=== PATIENT | female | born 1985 | race Caucasian/White ===

== ENCOUNTER 2022-02-06 09:54 | Outpatient (CLI) | payer BC, OTHER ==
[2022-02-06 21:29] LABS: SARS-CoV-2 PCR by NAA Not Detected (NotDetected)
== END 2022-02-06 09:55 | disposition home or self-care (01) ==
LOC: CSHLAB 09:54
PROVIDERS: ATTEND Obstetrics & Gynecology
DX: Z20.822 Contact with and (suspected) exposure to COVID-19 (principal)
CPT/HCPCS: U0003; U0005

== ENCOUNTER 2022-02-06 17:09 | Inpatient (IN) | payer BC ==
[~2022-02-06 17:09] MED LIST: Bupivacaine/Epinephrine 0.25% 30 ML VIAL ONE
[2022-02-06] MEDS ORDERED: Ondansetron PF 4 MG/2 ML Vial IVP PRN ×2 (17:13→21:47)
[2022-02-06] MEDS ORDERED: hydrALAZINE 20 MG/ML VIAL SLOW IVP PRN ×3 (17:13)
[2022-02-06] MEDS ORDERED: Labetalol HCl 100 MG/20 ML VIAL SLOW IVP PRN ×2 (17:13)
[2022-02-06] MEDS ORDERED: Acetaminophen 500 MG TAB PO PRN (17:13)
[2022-02-06] MEDS ORDERED: Calcium Gluc 4.6 MEQ/10 ML (100 MG/ML) SLOW IVP PRN (17:13)
[2022-02-06] MEDS ORDERED: Butorphanol Tartrate 1 MG/ML VIAL SLOW IVP PRN (17:13)
[2022-02-06] MEDS ORDERED: Promethazine HCl 25 MG/ML VIAL IM PRN ×2 (17:13→21:47)
[2022-02-06] MEDS ORDERED: Lorazepam 2 MG/ML VIAL SLOW IVP PRN (17:13)
[2022-02-06] MEDS ORDERED: Docusate 100 MG CAP PO PRN (17:13)
[2022-02-06] MEDS ORDERED: HYDROcodone/Acetaminophen 5/325 mg Tablet PO PRN ×2 (17:13)
[2022-02-06] MEDS ORDERED: Ibuprofen 800 MG TAB PO PRN (17:13)
[2022-02-06] MEDS ORDERED: Misoprostol 200 MCG TAB PR PRN (17:13)
[2022-02-06] MEDS ORDERED: Diphenoxylate HCl/Atropine Tablet PO PRN ×2 (17:13)
[2022-02-06] MEDS ORDERED: Lidocaine 1% (PF) 30 ML VIAL SC PRN (17:13)
[2022-02-06] MEDS ORDERED: NS w/ Oxytocin 30 units 500 ML IV SCH ×2 (17:15)
[2022-02-06] MEDS ORDERED: Lactated Ringer's 1,000 ML IV SCH (17:15)
[2022-02-06 18:59] LABS: Hemoglobin 12.3 g/dL (12.0-15.5); Mean Corpuscular HGB CONC 34.7 g/dL (32.0-36.0); Mean Corpuscular Hemoglobin 30.9 pg (27.0-33.0); Mean Corpuscular Volume 88.9 fl (81.6-98.3); Mean Platelet Volume 10.8 fl (7.4-10.4); Platelet Count 263 10x3/uL (150-450); RBC Distribution Width 14.1 % (11.5-14.5); Red Blood Cell (RBC) Count 3.98 10x6/uL (3.90-5.03); White Blood Cell (WBC) Count 9.2 10x3/uL (3.5-10.5)
[2022-02-06] MEDS ORDERED: Calcium Carbonate 500 MG ChewTAB PO PRN (19:23)
[2022-02-06 19:30] LABS: HIV (1/2) Antibody/Antigen Non-Reactive (NonReactive); Hep B Surf Ag Non-Reactive S/CO (NonReactive)
[2022-02-06 19:31] LABS: HBSAg Index 0.18 S/CO (0-0.99); Syphilis Antibody Nonreactive (Nonreactive); Syphilis Antibody Index 0.03 S/CO (<1.00 Non-Reactive)
[2022-02-06] MEDS ORDERED: Fentanyl 2 mcg/Bup 0.1% Cadd 100 ML ONE (21:13)
[2022-02-06] MEDS ORDERED: Moisturizing Cream (Eucerin) 113 GM JAR TOP PRN (21:47)
[2022-02-06] MEDS ORDERED: ePHEDrine Sulfate 50 MG/10 ML VIAL SLOW IVP PRN (21:47)
[2022-02-06] MEDS ORDERED: Acetaminophen 325 MG TAB PO PRN (21:47)
[2022-02-06] MEDS ORDERED: Naloxone HCl 0.4 mg/ml Vial IVP PRN ×2 (21:47)
[2022-02-06] MEDS ORDERED: Lactated Ringer's 500 ML IV PRN (21:47)
[2022-02-06] MEDS ORDERED: diphenhydrAMINE 50 MG/ML VIAL IVP PRN (21:47)
[2022-02-06] MEDS ORDERED: Communication Order-Pharmacy FS SCH (22:00)
[2022-02-06] MEDS ORDERED: Fentanyl 2 mcg/Bupivacaine 0.1% Cassette 100 ML EPIDURAL SCH (22:00)
[2022-02-07] MEDS ORDERED: Milk Of Magnesia 30 ML UDCUP PO PRN (06:48)
[2022-02-07] MEDS ORDERED: Bisacodyl 10 MG SUPP PR PRN (06:48)
[2022-02-07] MEDS ORDERED: Misoprostol 200 MCG TAB VAG PRN (06:48)
[2022-02-07] MEDS ORDERED: hydrALAZINE 20 MG/ML VIAL SLOW IVP PRN (06:48)
[2022-02-07] MEDS ORDERED: Preparation H Ointment 28 GM TUBE PR PRN (06:48)
[2022-02-07] MEDS ORDERED: HYDROcodone/Acetaminophen 5/325 mg Tablet PO PRN ×2 (06:48)
[2022-02-07] MEDS ORDERED: Boostrix 0.5 ML (Tdap) VIAL IM ONE (06:48)
[2022-02-07] MEDS ORDERED: Zolpidem Tartrate 5 MG TAB PO PRN (06:48)
[2022-02-07] MEDS ORDERED: Ondansetron PF 4 MG/2 ML Vial IVP PRN (06:48)
[2022-02-07] MEDS ORDERED: Benzocaine-Menthol 82.5 ML CAN TOP PRN (06:48)
[2022-02-07] MEDS ORDERED: Lanolin Ointment 7 GM TUBE TOP PRN (06:48)
[2022-02-07] MEDS ORDERED: diphenhydrAMINE 25 MG CAP PO PRN (06:48)
[2022-02-07] MEDS ORDERED: Witch Hazel-Glycerin 1 EACH JAR TOP PRN (06:50)
[2022-02-07] MEDS ORDERED: NS w/ Oxytocin 30 units 500 ML IV SCH (07:00)
[2022-02-07] MEDS: Ferrous Sulfate 325 MG TAB PO SCH ×2 (09:24→16:34)
[2022-02-07] MEDS: Labetalol HCl 200 MG TAB PO SCH ×2 (09:24→21:23)
[2022-02-07] MEDS: Docusate 100 MG CAP PO SCH ×2 (09:58→21:23)
[2022-02-07] MEDS: Prenatal Vitamin 1 TAB PO SCH (09:58)
[2022-02-07] MEDS: Ibuprofen 800 MG TAB PO SCH ×2 (13:22→21:24)
[2022-02-08 04:47] LABS: Hemoglobin 10.5 g/dL (12.0-15.5); Mean Corpuscular HGB CONC 33.5 g/dL (32.0-36.0); Mean Corpuscular Hemoglobin 31.1 pg (27.0-33.0); Mean Corpuscular Volume 92.6 fl (81.6-98.3); Mean Platelet Volume 11.1 fl (7.4-10.4); Platelet Count 238 10x3/uL (150-450); RBC Distribution Width 14.3 % (11.5-14.5); Red Blood Cell (RBC) Count 3.38 10x6/uL (3.90-5.03); White Blood Cell (WBC) Count 11.4 10x3/uL (3.5-10.5)
[2022-02-08] MEDS: Ibuprofen 800 MG TAB PO SCH (06:27)
[2022-02-08] MEDS: Ferrous Sulfate 325 MG TAB PO SCH (07:12)
[2022-02-08] MEDS: Prenatal Vitamin 1 TAB PO SCH (09:25)
[2022-02-08] MEDS: Labetalol HCl 200 MG TAB PO SCH (09:25)
[2022-02-08] MEDS: Docusate 100 MG CAP PO SCH (09:25)
[2022-02-08 11:56] VITALS: BP 133/87; TEMP 98.5
== END 2022-02-08 13:56 | disposition home or self-care (01) | DRG 807 ==
LOC: CSHLD 17:09 → CSHPP 02-07 09:10
PROVIDERS: ADMIT Obstetrics & Gynecology; ATTEND Obstetrics & Gynecology
PROC: 10E0XZZ Delivery of Products of Conception, External Approach (ICD-10-PCS; principal; 2022-02-07)
PROC: 3E033VJ Introduction of Other Hormone into Peripheral Vein, Percutaneous Approach (ICD-10-PCS; 2022-02-07)
PROC: 10907ZC Drainage of Amniotic Fluid, Therapeutic from Products of Conception, Via Natural or Artificial Opening (ICD-10-PCS; 2022-02-07)
PROC: 0HQ9XZZ Repair Perineum Skin, External Approach (ICD-10-PCS; 2022-02-07)
DX: O13.4 Gestational [pregnancy-induced] hypertension without significant proteinuria, complicating childbirth (principal); Z37.0 Single live birth; Z3A.38 38 weeks gestation of pregnancy; D64.9 Anemia, unspecified; O99.02 Anemia complicating childbirth; Z79.899 Other long term (current) drug therapy; O70.0 First degree perineal laceration during delivery
CPT/HCPCS: 36415; 51702; 85027; 86780; 86850; 86900; 86901; 87340; 87389; J2405; J2590; J7120; U0003; U0005

== ENCOUNTER 2022-02-11 14:37 | Inpatient (IN) | payer BC ==
[2022-02-11] MEDS ORDERED: Labetalol HCl 100 MG/20 ML VIAL ONE (15:11)
[2022-02-11] MEDS ORDERED: Magnesium 2 GM/50 ML BAG (IN WATER) ONE (15:17)
[2022-02-11 15:29] LABS: Bilirubin Neg (Negative); Blood, Urine 250 (Negative); Clarity Clear (Clear); Glucose, Urine (Dipstick) Normal (Negative); Ketone, Urine Negative (Negative); Leukocyte 500 (Negative); Nitrite Negative (Negative); Protein, Urine (Dipstick) Negative (Neg-Trace); Specific Gravity, Urine 1.005 (1.002-1.036); Urobilinogen Normal mg/dL (Less than 2)
[2022-02-11 15:31] LABS: #Eosinphils 0.4 10x3/uL (0.0-0.5); #Monocytes 0.5 10x3/uL (0.0-1.1); %Basophils 0.5 % (0.0-2.0); %Eosinophils 4.1 % (0.0-6.0); %Lymphocytes 29.3 % (18.0-47.0); %Monocytes 5.9 % (0.0-10.0); %Neutrophils 58.9 % (40.0-75.0); Hemoglobin 11.9 g/dL (12.0-15.5); Mean Corpuscular HGB CONC 33.1 g/dL (32.0-36.0); Mean Corpuscular Hemoglobin 30.3 pg (27.0-33.0); Mean Corpuscular Volume 91.6 fl (81.6-98.3); Mean Platelet Volume 10.4 fl (7.4-10.4); Platelet Count 357 10x3/uL (150-450); RBC Distribution Width 13.7 % (11.5-14.5); Red Blood Cell (RBC) Count 3.93 10x6/uL (3.90-5.03); White Blood Cell (WBC) Count 8.5 10x3/uL (3.5-10.5)
[2022-02-11 15:44] LABS: ALT (SGPT) 19 U/L (8-55); AST (SGOT) 26 U/L (5-34); Albumin 3.8 g/dL (3.5-5.0); Alkaline Phosphatase 126 U/L (40-110); Anion Gap 15 mmol/L (10-20); BUN (Urea Nitrogen) 8 mg/dL (7.0-18.7); Bilirubin, Total 0.3 mg/dL (0.2-1.2); Calc. Creatinine Clearance 0 mL/min (70-130); Calcium 8.9 mg/dL (7.8-10.44); Carbon Dioxide 21 mmol/L (22-29); Chloride 107 mmol/L (98-107); Globulin 3.2 g/dL (2.4-3.5); Glucose 91 mg/dL (70-105); Sodium 139 mmol/L (136-145)
[2022-02-11 15:53] LABS: Bacteria/HPF None Seen HPF (None Seen); RBC/HPF 0-3 HPF (0-3); Squamous Epithelial 0-3 HPF (0-3); WBC/HPF 0-3 HPF (0-3)
[2022-02-11 17:06] LABS: SARS-CoV-2 NAA Rapid Test Not Detected (NotDetected)
[2022-02-11] MEDS ORDERED: Magnesium Sulfate 20 gm/500 ml 20 GM/500 ML BAG ONE (18:06)
[2022-02-11] MEDS: Magnesium Sulfate 20 gm/500 ml 20 GM/500 ML BAG IVPB SCH (18:20)
[2022-02-11] MEDS ORDERED: Labetalol HCl 100 MG/20 ML VIAL SLOW IVP PRN ×2 (18:23)
[2022-02-11] MEDS ORDERED: Lorazepam 2 MG/ML VIAL SLOW IVP PRN (18:23)
[2022-02-11] MEDS ORDERED: hydrALAZINE 20 MG/ML VIAL SLOW IVP PRN (18:23)
[2022-02-11] MEDS ORDERED: Calcium Gluc 4.6 MEQ/10 ML (100 MG/ML) SLOW IVP PRN (18:23)
[2022-02-11] MEDS ORDERED: hydrALAZINE 20 MG/ML VIAL ONE (18:27)
[2022-02-11] MEDS ORDERED: NIFEdipine XL 30 MG TAB PO SCH (18:30)
[2022-02-11] MEDS ORDERED: Acetaminophen 500 MG TAB PO PRN (18:32)
[2022-02-11] MEDS ORDERED: Zolpidem Tartrate 5 MG TAB PO PRN (18:33)
[2022-02-11] MEDS ORDERED: Furosemide 20 MG TAB PO SCH (20:00)
[2022-02-11] MEDS: Labetalol HCl 200 MG TAB PO SCH (20:40)
[2022-02-11] MEDS: Ibuprofen 800 MG TAB PO PRN (20:40)
[2022-02-12 02:55] LABS: Magnesium 4.9 mg/dL (1.6-2.6)
[2022-02-12] MEDS: Magnesium Sulfate 20 gm/500 ml 20 GM/500 ML BAG IVPB SCH (04:22)
[2022-02-12] MEDS ORDERED: Acetaminophen/Codeine 30-300mg Tablet PO SCH (08:30)
[2022-02-12] MEDS: Labetalol HCl 200 MG TAB PO SCH (08:54)
[2022-02-12 08:55] VITALS: BP 130/84
[2022-02-12] MEDS ORDERED: Prenatal Vitamin 1 TAB PO SCH (09:00)
[2022-02-12] MEDS ORDERED: NIFEdipine XL 30 MG TAB PO SCH (09:00)
[2022-02-12] MEDS: Ibuprofen 800 MG TAB PO PRN (12:14)
== END 2022-02-12 15:57 | disposition home or self-care (01) | DRG 776 ==
LOC: CSHERS 14:37 → CSHLD 18:06
PROVIDERS: ADMIT Obstetrics & Gynecology; ATTEND Obstetrics & Gynecology
DX: O13.5 Gestational [pregnancy-induced] hypertension without significant proteinuria, complicating the puerperium (principal); Z20.822 Contact with and (suspected) exposure to COVID-19; Z79.899 Other long term (current) drug therapy
CPT/HCPCS: 36415; 80053; 81003; 81015; 82570; 83735; 84156; 85025; 96365; 96375; J0360; J3475; U0002